=== PATIENT | male | born 1950 | race Two or more races ===

== ENCOUNTER 2024-03-11 14:15 | Emergency (ER) | payer MEDICARE ==
[~2024-03-11] VITALS: Ht 180.3 cm; Wt 79.0 kg
[2024-03-11 14:20] VITALS: TEMP 98.2
[2024-03-11] MEDS ORDERED: TRAM50TA5 PO (16:56)
[2024-03-11 17:05] VITALS: BP 121/75; PULSE 86; RESP 16
== END 2024-03-11 18:09 | disposition home or self-care (01) ==
LOC: EMS 14:16
DX: S90.31XA Contusion of right foot, initial encounter (principal); X58.XXXA Exposure to other specified factors, initial encounter; Y93.9 Activity, unspecified; Y92.89 Other specified places as the place of occurrence of the external cause; Y99.8 Other external cause status
CPT/HCPCS: 99283